=== PATIENT | male | born 1995 | race Caucasian/White ===

== ENCOUNTER 2019-01-13 20:50 | Emergency (ER) | payer SELFPAY ==
--- NOTE | 2019-01-13 20:58 | UC ---
Throat Pain/Nasal Cristobal HPI - HPI Summary HPI Summary: 23 yo male presents with fatigue and body aches since yesterday. He has not taken anything OTC for his symptoms. Has felt feverish, but has not taken his temperature. He has been bitten by a few ticks this spring/summer, but thinks he has removed all of them within the first 24 hours. Has not noticed a rash. Denies sinus symptoms, sore throat, cough, SOB, chest pain, abdominal pain, n/v/ d/c, dysuria. HE does not smoke. Denies PMHx - History of Current Complaint Stated Complaint: FEVER, AND ACHES Time Seen by Provider: 01/13/19 20:57 Hx Obtained From: Patient Onset/Duration: Sudden Onset Severity: Moderate Pain Intensity: 6 Pain Scale Used: 0-10 Numeric - Allergies/Home Medications Allergies/Adverse Reactions: Allergies Allergy/AdvReac Type Severity Reaction Status Date / Time No Known Allergies Allergy Verified 01/13/19 21:03 Home Medications: Home Medications D-Methorphan/PE/Acetaminophen [Tylenol Cold Max Day Caplet] 1 each PO Q12HR PRN 01/13/19 [History Confirmed 01/13/19] PMH/Surg Hx/FS Hx/Imm Hx - Additional Past Medical History Additional PMH: None Other History Of: Negative For: Anticoagulant Therapy - Surgical History Surgical History: None - Family History Known Family History: Positive: Non-Contributory - Social History Lives: With Family Alcohol Use: Weekly Substance Use Type: None Smoking Status (MU): Never Smoked Tobacco Review of Systems All Other Systems Reviewed And Are Negative: Yes Constitutional: Positive: Fever, Fatigue, Other - Body aches Skin: Positive: Negative Eyes: Positive: Negative ENT: Positive: Negative Respiratory: Positive: Negative Cardiovascular: Positive: Negative Gastrointestinal: Positive: Negative Genitourinary: Positive: Negative Motor: Positive: Negative Neurovascular: Positive: Negative Musculoskeletal: Positive: Negative Neurological: Positive: Negative Psychological: Positive: Negative Physical Exam - Summary Physical Exam Summary: GENERAL: NAD. WDWN. No pain distress. SKIN: No rashes, sores, or open wounds. HEENT: Head: AT/NC Eyes: PERRLA. EOM intact. Conjunctiva clear without inflammation or discharge. Ears: Hearing grossly normal. TMs intact, no bulging, erythema, or edema. Nose: Nasal mucosa pink and moist. NTTP maxillary and frontal sinus. Throat: Posterior oropharynx without exudates, erythema, or tonsillar enlargement. Uvula midline. NECK: Supple. Nontender. No lymphadenopathy. CHEST: CTAB. No r/r/w. No accessory muscle use. Breathing comfortably and in no distress. CV: RRR. Without m/r/g. Pulses intact. Brisk cap refill. ABDOMEN: Soft. NTTP. No distention or guarding. No CVA tenderness. Bowel sounds present NEURO: Alert. PSYCH: Age appropriate behavior. Triage Information Reviewed: Yes Vital Signs: Vital Signs: Temp Pulse Resp BP Pulse Ox 99.6 F 85 18 127/68 96 01/13/19 21:01 01/13/19 21:01 01/13/19 21:01 01/13/19 21:01 01/13/19 21:01 Vital Signs Reviewed: Yes Throat Pain/Nasal Course/Dx - Course Course Of Treatment: UA negative. Suspect viral illness. Will draw for CBC, CMP, TSH, lyme, and mono and f/u with results. He was given toradol IM in the clinic for his discomfort and advised to take tylenol as directed for his symptoms. If his symptoms worsen or do not improve in 3-5 days or if he develops new symptoms to be rechecked. - Differential Dx/Diagnosis Provider Diagnosis: Body aches Discharge - Sign-Out/Discharge Documenting (check all that apply): Patient Departure All imaging exams completed and their final reports reviewed: No Studies - Discharge Plan Condition: Stable Disposition: HOME Patient Education Materials: Lyme Disease (ED), Tick Bite (ED), Viral Syndrome (ED) Referrals: No Primary Care Phys,NOPCP [Primary Care Provider] - Additional Instructions: If you develop a fever, shortness of breath, chest pain, new or worsening symptoms - please call your PCP or go to the ED immediately. 1) Take tylenol or ibuprofen as directed for discomfort 2) We have tested you for lyme disease and should have results within a few days for this and will treat you if it returns positive 3) If your symptoms have not improved in 3-5 days or if they worsen - please be rechecked - Billing Disposition and Condition Condition: STABLE Disposition: Home - Attestation Statements Provider Attestation: I was available for consult. This patient was seen by the LACIE. The patient was not presented to, seen by, or examined by me. -[place]
[2019-01-13 21:03] VITALS: BP 127/68
[2019-01-13] MEDS ORDERED: Ketorolac *IM* INJ* 60 MG/2 ML VIAL IM ONE (21:20)
[2019-01-14 12:02] LABS: ABS Lymphocytes 0.7 10^3/ul (1.0-4.8); ABS Monocytes 0.6 10^3/ul (0-0.8); ABS Neutrophils 3.8 10^3/ul (1.5-7.7); Eosinophil % 0.2 %; Hematocrit 45 % (42-52); Hemoglobin 15.6 g/dL (14.0-18.0); Lymphocyte % 13.7 %; Mean Corpuscular HGB Conc 35 g/dL (31-36); Mean Corpuscular Hemoglobin 29 pg (27-31); Mean Corpuscular Volume 83 fL (80-94); Nucleated Red Blood Cells % 0.1; Platelet Count 226 10^3/uL (150-450); Red Blood Count 5.38 10^6 /uL (4.18-5.48); Red Cell Distribution Width 13 % (10-15); White Blood Count 5.1 10^3/uL (3.5-10.8)
[2019-01-14 12:14] LABS: Albumin 4.5 g/dL (3.2-5.2); Albumin/Globulin Ratio 1.6 (1-3); BUN/Creatinine Ratio 14.8 (8-20); EGFR African American 128.7 (>60); EGFR Non-African American 106.4 (>60); Globulin 2.9 g/dL (2-4); Potassium 4.1 mmol/L (3.5-5.0); Total Bilirubin 0.9 mg/dL (0.2-1.0); Total Protein 7.4 g/dL (6.4-8.9)
[2019-01-14 12:28] LABS: TSH (Thyroid Stimulating Horm) 2.48 mcIU/mL (0.34-5.60)
[2019-01-15 13:07] LABS: Neisseria gonorrhoeae (GC) RNA Negative (Negative)
== END 2019-01-13 21:56 | disposition home or self-care (01) ==
LOC: UCEAST 20:50
DX: R53.83 Other fatigue (principal)
CPT/HCPCS: 36415; 80053; 81002; 84443; 85025; 86308; 86617; 86618; 87491; 87591; 99211; G0463; J1885